=== PATIENT | male | born 1965 | race Caucasian/White ===

== ENCOUNTER 2017-07-31 17:11 | Emergency (ER) | payer OTHER ==
[2017-07-31 17:35] VITALS: BP 139/71
[2017-07-31] MEDS ORDERED: Take Home: Clindamycin HCl 150 MG Cap, 6 Cap Pack PO ONE (18:23)
--- NOTE | 2017-07-31 18:37 | EDM.PDOC ---
ED HPI GENERAL MEDICAL PROBLEM - General Chief Complaint: Genitourinary Problem Stated Complaint: Scotum pain Time Seen by Provider: 07/31/17 17:58 Source of Information: Reports: Patient History Limitations: Reports: No Limitations - History of Present Illness INITIAL COMMENTS - FREE TEXT/NARRATIVE: Patient reports abscess of scrotum that started on Tuesday. He has a history of this in the past. 2 years ago he states he needed surgery to I and D the abscess which required a lengthy time to heal. He denies fever, chills, nausea or vomiting. Recent left knee replacement. He has no other complaints today. Onset: Gradual Onset Date: 07/29/17 Duration: Getting Worse, Intermittent Scrotum Pain Score (Numeric/FACES): 10 - Related Data Allergies Allergy/AdvReac Type Severity Reaction Status Date / Time No Known Allergies Allergy Verified 07/31/17 17:37 Home Meds: Home Meds Allopurinol [Zyloprim] 300 mg PO DAILY 05/07/13 [History] Ezetimibe [Zetia] 10 mg PO DAILY 05/07/13 [History] Gemfibrozil [Lopid] 600 mg PO BIDAC 05/07/13 [History] Indomethacin 50 mg PO BID 05/07/13 [History] Insulin Glarg,Human.Rec.Analog [Lantus] 40 units SQ BEDTIME 05/07/13 [History] Metoprolol Succinate 50 mg PO BID 05/07/13 [History] [place]-3 Fatty Acids/Fish Oil [Fish Oil 1,000 mg Softgel] 1,200 mg PO DAILY 05/07 [History] atorvaSTATin Calcium [Atorvastatin Calcium] 80 mg PO DAILY 05/07/13 [History] Omeprazole [Prilosec] 20 mg PO DAILY 03/05/14 [History] metFORMIN HCl [Metformin HCl] 500 mg PO BID 03/05/14 [History] Insulin Regular, Human [NovoLIN R] 10 unit SQ TID 06/14/14 [History] Aspirin/Calcium Carbonate/Mag [Aspirin Buffered] 325 mg PO BID 07/31/17 [History ] Past Medical History Cardiovascular History: Reports: High Cholesterol, Hypertension, CT Respiratory History: Reports: COPD Musculoskeletal History: Reports: Gout, RA Endocrine/Metabolic History: Reports: Diabetes, Type II - Past Surgical History HEENT Surgical History: Reports: Adenoidectomy, Cataract Surgery, Tonsillectomy Cardiovascular Surgical History: Reports: Coronary Artery Bypass GI Surgical History: Reports: Other (See Below) Musculoskeletal Surgical History: Reports: Arthroscopic Knee Dermatological Surgical History: Reports: Other (See Below) Social & Family History - Tobacco Use Smoking Status *Q: Current Every Day Smoker Years of Tobacco use: 30 Packs/Tins Daily: 1 - Alcohol Use Days Per Week of Alcohol Use: 0 - Recreational Drug Use Recreational Drug Use: No ED ROS GENERAL - Review of Systems Review Of Systems: See Below Constitutional: Reports: No Symptoms HEENT: Reports: No Symptoms Respiratory: Reports: No Symptoms Cardiovascular: Reports: No Symptoms Endocrine: Reports: No Symptoms GI/Abdominal: Reports: No Symptoms : Reports: No Symptoms Musculoskeletal: Reports: No Symptoms Skin: Reports: Wound (abscess to yury rectal area) Neurological: Reports: No Symptoms Psychiatric: Reports: No Symptoms ED EXAM, SKIN/RASH Exam: See Below Exam Limited By: No Limitations General Appearance: Alert, WD/WN, Mild Distress Neck: Normal Inspection Respiratory/Chest: No Respiratory Distress, Lungs Clear, Normal Breath Sounds, No Accessory Muscle Use, Chest Non-Tender Cardiovascular: Normal Peripheral Pulses, Regular Rate, Rhythm, No Edema, No Gallop, No JVD, No Murmur, No Rub GI/Abdominal: Normal Bowel Sounds, Soft, Non-Tender, No Organomegaly, No Distention, No Abnormal Bruit, No Mass (Male) Exam: Scrotal Swelling Rectal (Males) Exam: Perirectal Abscess Back Exam: Normal Inspection, Full Range of Motion, NT Extremities: Normal Inspection, Normal Range of Motion, Non-Tender, No Pedal Edema, Normal Capillary Refill Neurological: Alert, Oriented, CN II-XII Intact, Normal Cognition, Normal Gait, Normal Reflexes, No Motor/Sensory Deficits Psychiatric: Normal Affect, Normal Mood ED SKIN PROCEDURES - I&D Site: perirectal abscess Skin Prep: Chlorhexidine (Hibiciens) Local Anesthesia: Lidocaine: 1% Plain Local Anesthetic Volume: 3cc Area Incised With: 11 Blade Drainage: Bloody, Small Amount Probed to Break Up Loculations: Yes Packed With: None Sterile Dressinx4(s), None (dressing was applied) Complications: No Course - Vital Signs Last Recorded V/S: Last Vital Signs Temp 36.1 C 07/31/17 17:29 Pulse 94 07/31/17 17:29 Resp 16 07/31/17 17:29 BP 139/71 07/31/17 17:29 Pulse Ox 94 L 07/31/17 17:29 - Orders/Labs/Meds Orders: Active Orders 24 hr Category Date Time Status CULTURE WOUND + SMEAR [RM] Stat Lab 07/31/17 18:19 Results Meds: Medications Discontinued Medications Generic Name Dose Route Start Last Admin Trade Name Dianne PRN Reason Stop Dose Admin Clindamycin HCl 1 packet 07/31/17 18:23 07/31/17 18:54 Take Home: Clindamycin Hcl 150 Mg, 6 Cap Pack PO 07/31/17 18:24 1 packet ONETIME ONE Administration Lidocaine HCl Confirm 07/31/17 18:13 07/31/17 18:15 Xylocaine-Mpf 1% Administered 07/31/17 18:14 2 ml Dose Administration 5 ml .ROUTE .STK-MED ONE Lidocaine HCl 5 ml 07/31/17 19:16 07/31/17 21:00 Xylocaine-Mpf 1% INJECT 07/31/17 19:17 Not Given ONETIME ONE - Re-Assessments/Exams Free Text/Narrative Re-Assessment/Exam: 07/31/17 22:18 Abscess drained, dressed with gauze bandaging. Patient encouraged to seek appointment with his primary doctor. Prescribed clindamycin due to interactions with metformin of both bactrim and keflex Departure - Departure Time of Disposition: 18:38 Disposition: Home, Self-Care 01 Condition: Good Clinical Impression: Pyogenic skin abscess due to bacteria - Discharge Information Instructions: Skin Abscess, [id number], Clindamycin capsules Referrals: Anita Escobar DO [Primary Care Provider] - Forms: ED Department Discharge Additional Instructions: You can use a warm bath to try to draw out the infection. You will have to keep your knee out of the water. Wash with soap and water and apply dressing until drainage stops. I recommend you follow up with your primary as well in the next few days to make sure the abscess is improving. I did give you clindamycin 450 mg 4 times daily for 7 days Please take all your antibiotics until the are finished unless you develop a rash, have a hard time breathing, or you have other allergic reactions. Stay well hydrated. Call the emergency room if you have any questions or concerns - Problem List & Annotations (1) Skin abscess SNOMED Code(s): 86076286 Code(s): L02.91 - CUTANEOUS ABSCESS, UNSPECIFIED Status: Acute Priority: Medium Current Visit: Yes Qualifiers: Site of cutaneous abscess: buttock Qualified Code(s): L02.31 - Cutaneous abscess of buttock - Problem List Review Problem List Initiated/Reviewed/Updated: Yes - My Orders Last 24 Hours: My Active Orders 07/31/17 18:19 CULTURE WOUND + SMEAR [RM] Stat - Assessment/Plan Last 24 Hours: My Active Orders 07/31/17 18:19 CULTURE WOUND + SMEAR [RM] Stat Assessment:: skin abscess of right buttock, perirectal area Plan: You can use a warm bath to try to draw out the infection. You will have to keep your knee out of the water. Wash with soap and water and apply dressing until drainage stops. I recommend you follow up with your primary as well in the next few days to make sure the abscess is improving. I did give you clindamycin 450 mg 4 times daily for 7 days Please take all your antibiotics until the are finished unless you develop a rash, have a hard time breathing, or you have other allergic reactions. Stay well hydrated. Call the emergency room if you have any questions or concerns
--- NOTE | 2017-08-02 15:45 | PCM.SN ---
- Free Text/Narrative Note: Culture positive for Coag neg staph-susceptibility unknown at this time. Pt. is currently on clindamycin which has empiric activity against some species of coag neg staph. will await final susceptibility.
== END 2017-07-31 18:58 | disposition home or self-care (01) ==
LOC: VM.ED 17:11
DX: K61.1 Rectal abscess (principal); B96.89 Other specified bacterial agents as the cause of diseases classified elsewhere; F17.210 Nicotine dependence, cigarettes, uncomplicated; E11.9 Type 2 diabetes mellitus without complications; I10 Essential (primary) hypertension; E78.00 Pure hypercholesterolemia, unspecified; I25.2 Old myocardial infarction; Z79.4 Long term (current) use of insulin; Z79.899 Other long term (current) drug therapy
CPT/HCPCS: 46040; 87070; 87205; 99284; A9270

== ENCOUNTER 2017-08-11 11:23 | Inpatient (IN) | payer OTHER ==
[2017-08-11] MEDS ORDERED: Docusate Sodium 100 MG Cap PO PRN (13:39)
[2017-08-11] MEDS ORDERED: Magnesium Hydroxide 400 MG/5 ML Susp 30 ML Cup PO PRN (13:39)
[2017-08-11] MEDS ORDERED: Polyethylene Glycol 3350 Powder 17 GM Packet PO PRN (13:39)
[2017-08-11] MEDS ORDERED: Acetaminophen 325 MG Tab PO PRN (13:39)
--- NOTE | 2017-08-11 14:52 | PCM.HP ---
H&P History of Present Illness - General Date of Service: 08/11/17 Admit Problem/Dx: Admission Diagnosis/Problem Admission Diagnosis/Problem Wound, Buttocks/Scrotum Perianal Abscess Soft Tissue Infection Deconditioning Weakness s/p Left TKA Source of Information: Patient, Family, Old Records, RN History Limitations: Reports: No Limitations - History of Present Illness Initial Comments - Free Text/Narative: NOTE: This patient was seen and examined by me as an [facility] provider 52-year-old male patient is admitted to the swing bed unit at [facility] for ongoing wound cares, status post I&D, deconditioning, and weakness. The patient underwent a left TKA on July 19, [address] Irwin at [facility]. The patient had an uneventful surgery and progressed well with therapies and was therefore discharged on July 21, 2017. The patient presented to [facility] emergency room on July 31, 2017 complaining of swelling and pain around the left yury-area. The patient was diagnosed with a boil and it was lanced and the patient was placed on by mouth antibiotics. Throughout the rest of that day and the next day the patient's symptoms began to worsen. The patient was seen in clinic on July 31, [address] Anita Escobar who referred this patient to Dr. Cornell Wells. The patient underwent an abscess I & D on August 01, 2017. The patient stayed in the hospital until today when he was transferred to the swing bed unit at [facility]. The patient's procedure was fairly uneventful. The patient was given IV antibiotics and had daily dressing changes. The patient has become somewhat deconditioned and feels weak since he has not had much physical therapy since his knee arthroplasty. The patient is unable to change the dressings himself given the location, therefore he needs long term to assist with dressing changes. The patient also needs to be started with physical therapy for his weakness and deconditioning status post left TKA. The patient offers no specific complaints today. The patient states that he continues to have considerable pain around the operative sit The patient does not have any complaints of the left knee. The patient denies any chest pain or shortness of breath. The patient denies any abdominal pain. No fevers or chills. The patient denies any focal neurological deficits. Symptom Onset Date: 07/31/17 - Related Data Allergies/Adverse Reactions: Allergies Allergy/AdvReac Type Severity Reaction Status Date / Time No Known Allergies Allergy Verified 07/31/17 17:37 Home Medications: Home Meds Allopurinol [Zyloprim] 300 mg PO DAILY 05/07/13 [History] Gemfibrozil [Lopid] 600 mg PO BIDAC 05/07/13 [History] Metoprolol Succinate 37 mg PO BID 05/07/13 [History] [place]-3 Fatty Acids/Fish Oil [Fish Oil 1,000 mg Softgel] 1,000 mg PO DAILY 05/07 [History] atorvaSTATin Calcium [Atorvastatin Calcium] 80 mg PO DAILY 05/07/13 [History] Omeprazole [Prilosec] 20 mg PO DAILY 03/05/14 [History] metFORMIN HCl [Metformin HCl] 500 mg PO BIDAC 03/05/14 [History] Aspirin/Calcium Carbonate/Mag [Aspirin Buffered] 325 mg PO BID 07/31/17 [History ] FLUoxetine HCl [Prozac] 40 mg PO DAILY 07/31/17 [History] Gabapentin [Neurontin] 600 mg PO DAILY 07/31/17 [History] Insulin Glargine,Hum.Rec.Anlog [Basaglar Kwikpen U-100] 40 units SQ BEDTIME [History] Insulin Lispro [Humalog Kwikpen] 15 unit SQ TIDAC 07/31/17 [History] LORazepam [Ativan] 1 mg PO BEDTIME 07/31/17 [History] Multivitamin [Men's Multi-Vitamin] 2 tab PO BID 07/31/17 [History] Nortriptyline 50 mg PO DAILY 07/31/17 [History] oxyCODONE 1 - 2 tab PO Q6H PRN 07/31/17 [History] Gabapentin [Neurontin] 300 mg PO BEDTIME 08/11/17 [History] Past Medical History Cardiovascular History: Reports: CAD, High Cholesterol, Hypertension, [place], Stents Other Cardiovascular History: A.flutter, angina Respiratory History: Reports: COPD, Sleep Apnea Musculoskeletal History: Reports: Gout, RA Endocrine/Metabolic History: Reports: Diabetes, Type II - Past Surgical History HEENT Surgical History: Reports: Adenoidectomy, Cataract Surgery, Tonsillectomy Cardiovascular Surgical History: Reports: Cardiac Ablation, Coronary Artery Bypass Respiratory Surgical History: Reports: None GI Surgical History: Reports: Other (See Below) Other GI Surgeries/Procedures: umbilical hernia Musculoskeletal Surgical History: Reports: Arthroscopic Knee, Knee Replacement Dermatological Surgical History: Reports: Other (See Below) Social & Family History - Family History Family Medical History: Noncontributory - Tobacco Use Smoking Status *Q: Former Smoker Years of Tobacco use: 30 Packs/Tins Daily: 1 Used Tobacco, but Quit: Yes Month/Year Tobacco Last Used: 07/2017 Second Hand Smoke Exposure: No - Caffeine Use Caffeine Use: Reports: Coffee, Soda - Alcohol Use Days Per Week of Alcohol Use: 0 - Recreational Drug Use Recreational Drug Use: No H&P Review of Systems - Review of Systems: Review Of Systems: See Below General: Reports: Weakness, Other (feels generally deconditioned). Denies: Fever, Chills, Decreased Appetite Pulmonary: Denies: Shortness of Breath, Cough Cardiovascular: Denies: Chest Pain, Palpitations Gastrointestinal: Denies: Abdominal Pain, Nausea, Vomiting Musculoskeletal: Reports: Joint Pain (left knee, very mild) Skin: Reports: Wound (perianal abscess) Neurological: Reports: Weakness. Denies: Dizziness, Headache Exam - Exam Exam: See Below - Vital Signs Vital Signs: Last Vital Signs Temp 36.3 C 08/11/17 13:27 Pulse 65 08/11/17 13:27 Resp 20 08/11/17 13:27 BP 120/61 08/11/17 13:27 Pulse Ox 97 08/11/17 13:27 Weight: 99.45 kg - Exam Quality Assessment: DVT Prophylaxis, Skin Breakdown General: Alert, Oriented, Cooperative Lungs: Clear to Auscultation, Normal Respiratory Effort Cardiovascular: Regular Rate, Regular Rhythm, Normal S1, Normal S2 GI/Abdominal Exam: Normal Bowel Sounds, Soft, Non-Tender Rectal (Males) Exam: Perirectal Abscess Extremities: Normal Inspection Peripheral Pulses: 2+: Radial (L), Radial (R) Skin: Warm, Dry, Incision (Perianal; dressings intact, scant yellow drainage; unable to measure given wound orientation; no evidence of obvious infection) Neuro Extensive - Mental Status: Alert, Oriented x3 *Q Meaningful Use (ADM) - VTE *Q VTE Criteria *Q: Patient is not at risk for fall - Problem List (1) Perirectal abscess SNOMED Code(s): 01104323 ICD Code: K61.1 - RECTAL ABSCESS Status: Acute Priority: Medium Current Visit: Yes Onset Date: ~07/31/17 (2) Soft tissue infection SNOMED Code(s): 29514229 ICD Code: L08.9 - LOCAL INFECTION OF THE SKIN AND SUBCUTANEOUS TISSUE, UNSP Status: Acute Priority: Medium Current Visit: Yes Onset Date: ~07/31/17 (3) Open wound SNOMED Code(s): 764735951 ICD Code: T14.8XXA - OTHER INJURY OF UNSPECIFIED BODY REGION, INITIAL ENCOUNTER Status: Acute Priority: Medium Current Visit: Yes Onset Date: ~08/01/17 (4) Physical deconditioning SNOMED Code(s): 18615552471754 ICD Code: R53.81 - OTHER MALAISE Status: Acute Priority: Medium Current Visit: Yes (5) Weakness SNOMED Code(s): 80194902 ICD Code: R53.1 - WEAKNESS Status: Acute Priority: Medium Current Visit : Yes (6) Diabetes SNOMED Code(s): 54905468 ICD Code: E11.9 - TYPE 2 DIABETES MELLITUS WITHOUT COMPLICATIONS Status: Chronic Current Visit: No Qualifiers: Diabetes mellitus type: type 2 Diabetes mellitus senior living insulin use: without local intermodal truck driver use Diabetes mellitus complication status: without complication Qualified Code(s): E11.9 - Type 2 diabetes mellitus without complications (7) NSTEMI (non-ST elevated myocardial infarction) SNOMED Code(s): 419660730 ICD Code: I21.4 - NON-ST ELEVATION (NSTEMI) MYOCARDIAL INFARCTION Status: Chronic Current Visit: No (8) Essential hypertension SNOMED Code(s): 34733427 ICD Code: I10 - ESSENTIAL (PRIMARY) HYPERTENSION Status: Chronic Current Visit: No (9) Mixed hyperlipidemia SNOMED Code(s): 567941061 ICD Code: E78.2 - MIXED HYPERLIPIDEMIA Status: Chronic Priority: Medium Current Visit: No (10) Depression SNOMED Code(s): 69391167 ICD Code: F32.9 - MAJOR DEPRESSIVE DISORDER, SINGLE EPISODE, UNSPECIFIED Status: Acute Current Visit: Yes Qualifiers: Depression Type: major depressive disorder Major depression recurrence: recurrent Active/Remission status: currently active Major depression episode severity: mild Qualified Code(s): F33.0 - Major depressive disorder, recurrent, mild Problem List Initiated/Reviewed/Updated: Yes Orders Last 24hrs: Active Orders 24 hr Category Date Time Status Patient Status [ADT] Routine ADT 08/11/17 13:39 Active Accu Check [Blood Glucose Check, Bedside] [RC] 07,11,17 Care 08/11/17 13:43 Active ,20 Ambulate [RC] 08,20 Care 08/11/17 13:39 Active Height and Weight [RC] .PRN Care 08/11/17 13:40 Active Intake and Output [RC] 06,18 Care 08/11/17 13:40 Active Oxygen Therapy [RC] PRN Care 08/11/17 13:39 Active Vital Signs [RC] ,18 Care 08/11/17 13:39 Active Consult to Case Management [CONS] Routine Cons 08/11/17 13:39 Active OT Evaluation and Treatment [CONS] Routine Cons 08/11/17 13:39 Active PT Evaluation and Treatment [CONS] Routine Cons 08/11/17 13:39 Active [place] [employer] Diet [DIET] Diet 08/11/17 Breakfast Active Acetaminophen [Tylenol] Med 08/11/17 13:39 Active 650 mg PO Q4H PRN Allopurinol [Zyloprim] Med 08/12/17 08:00 Active 300 mg PO DAILY Aspirin/Calcium Carbonate/Mag [Aspirin Buffered] Med 08/11/17 20:00 Pending 325 mg PO BID Docusate Sodium [Colace] Med 08/11/17 13:39 Active 100 mg PO BID PRN FLUoxetine [PROzac] Med 08/12/17 08:00 Active 40 mg PO DAILY Fish Oil/[place]-3 Fatty Acids [Fish Oil] Med 08/12/17 08:00 Active 1 gm PO DAILY Gabapentin [Neurontin] Med 08/11/17 20:00 Active 300 mg PO BEDTIME Gabapentin [Neurontin] Med 08/12/17 08:00 Active 600 mg PO DAILY Gemfibrozil [Lopid] Med 08/11/17 17:00 Active 600 mg PO BIDAC Insulin Aspart [NovoLOG] Med 08/11/17 17:00 Active 15 unit SUBCUT TIDAC Insulin Detemir [Levemir] Med 08/11/17 20:00 Active 20 unit SUBCUT BID LORazepam [Ativan] Med 08/11/17 20:00 Active 1 mg PO BEDTIME Magnesium Hydroxide [Milk of Magnesia] Med 08/11/17 13:39 Active 30 ml PO Q12H PRN Metoprolol Succinate [Toprol XL] Med 08/11/17 20:00 Pending 37 mg PO BID Multivitamins w-Iron/Ca/FA/Min [Thera M Plus] Med 08/12/17 08:00 Active 1 tab PO DAILY Nortriptyline Med 08/11/17 20:00 Active 50 mg PO BEDTIME Omeprazole Med 08/12/17 07:00 Active 20 mg PO ACBRK Polyethylene Glycol 3350 [MiraLAX] Med 08/11/17 13:39 Active 17 gm PO DAILY PRN atorvaSTATin [Lipitor] Med 08/11/17 20:00 Active 80 mg PO BEDTIME metFORMIN [Glucophage] Med 08/11/17 18:00 Active 500 mg PO BIDMEALS oxyCODONE Med 08/11/17 13:17 Active 5 mg PO Q6H PRN Antiembolic Hose [OM.PC] Routine Oth 08/11/17 13:39 Ordered Patient May [OM.PC] Click To Edit Oth 08/11/17 13:39 Ordered Resuscitation Status Routine Resus Stat 08/11/17 13:39 Ordered Medication Orders Acetaminophen (Tylenol) 650 mg PO Q4H PRN PRN Reason: Pain (Mild 1-3)/fever Allopurinol (Zyloprim) 300 mg PO DAILY [facility] Atorvastatin Calcium (Lipitor) 80 mg PO BEDTIME BLAS Docusate Sodium (Colace) 100 mg PO BID PRN PRN Reason: Constipation Fish Oil (Fish Oil) 1 gm PO DAILY [facility] Fluoxetine HCl (Prozac) 40 mg PO DAILY [facility] Gabapentin (Neurontin) 300 mg PO BEDTIME [facility]AS Gabapentin (Neurontin) 600 mg PO DAILY [facility] Gemfibrozil (Lopid) 600 mg PO BIDAC [facility] Insulin Aspart (Novolog) 15 unit SUBCUT TIDAC BLAS Insulin Detemir (Levemir) 20 unit SUBCUT BID [facility] Lorazepam (Ativan) 1 mg PO BEDTIME [facility] Magnesium Hydroxide (Milk Of Magnesia) 30 ml PO Q12H PRN PRN Reason: Constipation Metformin HCl (Glucophage) 500 mg PO BIDMEALS [facility] Metoprolol Succinate (Toprol Xl) 37 mg PO BID [facility] Multivitamins/Minerals (Thera M Plus) 1 tab PO DAILY [facility] Non-Formulary Medication (Aspirin/Calcium Carbonate/Mag [Aspirin Buffered]) 325 mg PO BID [facility]AS Nortriptyline HCl (Nortriptyline) 50 mg PO BEDTIME [facility] Omeprazole (Omeprazole) 20 mg PO ACBRK [facility] Oxycodone HCl (Oxycodone) 5 mg PO Q6H PRN PRN Reason: Pain (severe 7-10) Polyethylene Glycol (Miralax) 17 gm PO DAILY PRN PRN Reason: Constipation Assessment/Plan Comment:: 52-year-old male patient with a past medical history of diabetes, non-STEMI, hypertension, mixed hyperlipidemia, and depression is admitted to the swing bed unit at [facility] for a diagnosis of perianal abscess, soft tissue infection, deconditioning, and weakness. The patient was discharged on by mouth Bactrim DS and we will continue this for the full course. We will do close monitoring of the patient's soft tissue infection with each dressing change. The patient will have the dressing changed twice a day and as needed. The dressing change will be wet to dry. The patient does have an appointment August 17, 2017 at the wound clinic in [place]. We will monitor the patient's blood sugars closely 4 times a day given current infection status. We will continue the patient on his current home medications without any changes. We will continue the patient on aspirin 325 mg twice daily for anticoagulation. The patient will continue this 5 weeks postop. We will have physical and occupational therapy see this patient while he is on swing bed due to the fact the patient is behind on his therapy schedule. The patient will be admitted to swing bed until the patient or his is able to care for the open wound at home. The patient may need home healthcare services if they're unable to. We will see what the wound clinic asked to see at his next appointment and make the discharge physician at that time. We will also see how the patient progresses with physical and occupational therapy. The patient is a full code. The patient does wish to be transferred to a higher level of care should the need arise. NOTE: This patient was seen and examined by me as an [facility] provider
[2017-08-11] MEDS: Gemfibrozil 600 MG Tab PO SCH (17:12)
[2017-08-11] MEDS: Insulin Aspart 100 Units/ML 3 ML Pen SUBCUT SCH (17:12)
[2017-08-11] MEDS: metFORMIN 500 MG Tab PO SCH (17:12)
[2017-08-11] MEDS ORDERED: Insulin Detemir 100 Units/ML 3 ML Pen SUBCUT SCH (20:00)
[2017-08-11] MEDS ORDERED: atorvaSTATin 40 MG Tab PO SCH (20:00)
[2017-08-11] MEDS ORDERED: Metoprolol Succinate 25 MG Tab.ER PO SCH (20:00)
[2017-08-11] MEDS: Nortriptyline 25 MG Cap PO SCH (20:36)
[2017-08-11] MEDS: LORazepam 1 MG Tab PO SCH (20:37)
[2017-08-11] MEDS: Sulfamethoxazole/Trimethoprim 800-160 MG Tab PO SCH (20:39)
[2017-08-11] MEDS: Aspirin 325 MG Tab.EC PO SCH (20:44)
[2017-08-11] MEDS: Gabapentin 300 MG Cap PO SCH (20:45)
[2017-08-11] MEDS: Metoprolol Tartrate 25 MG Tab PO SCH (20:48)
[2017-08-11] MEDS: oxyCODONE 5 MG Tab PO PRN (21:12)
[2017-08-12] MEDS: Insulin Aspart 100 Units/ML 3 ML Pen SUBCUT SCH ×3 (06:46→17:49)
[2017-08-12] MEDS: Gemfibrozil 600 MG Tab PO SCH ×2 (06:48→17:16)
[2017-08-12] MEDS ORDERED: Omeprazole 20 MG Cap.CR PO SCH (07:00)
[2017-08-12] MEDS: Metoprolol Tartrate 25 MG Tab PO SCH ×2 (08:23→21:17)
[2017-08-12] MEDS: Gabapentin 300 MG Cap PO SCH ×2 (08:23→21:15)
[2017-08-12] MEDS: Aspirin 325 MG Tab.EC PO SCH ×2 (08:23→21:16)
[2017-08-12] MEDS: Sulfamethoxazole/Trimethoprim 800-160 MG Tab PO SCH ×2 (08:23→21:15)
[2017-08-12] MEDS: metFORMIN 500 MG Tab PO SCH ×2 (08:24→17:16)
[2017-08-12] MEDS: Multivitamins with Iron/Calcium/Folic Acid/Minerals Tab PO SCH (08:24)
[2017-08-12] MEDS: Allopurinol 300 MG Tab PO SCH (08:24)
[2017-08-12] MEDS: FLUoxetine 20 MG Cap PO SCH (08:24)
[2017-08-12] MEDS: Fish Oil/Omega-3 Fatty Acids 1 Gm Cap PO SCH (08:24)
[2017-08-12] MEDS: Insulin Detemir 100 Units/ML 3 ML Pen SUBCUT SCH ×2 (08:30→21:20)
[2017-08-12] MEDS: Nortriptyline 25 MG Cap PO SCH (21:14)
[2017-08-12] MEDS: LORazepam 1 MG Tab PO SCH (21:16)
[2017-08-12] MEDS: atorvaSTATin 40 MG Tab PO SCH (21:16)
[2017-08-12] MEDS: oxyCODONE 5 MG Tab PO PRN (21:19)
[2017-08-13] MEDS: Gemfibrozil 600 MG Tab PO SCH ×2 (06:48→17:27)
[2017-08-13] MEDS: Omeprazole 20 MG Cap.CR PO SCH (06:48)
[2017-08-13] MEDS: Gabapentin 300 MG Cap PO SCH ×2 (07:42→20:34)
[2017-08-13] MEDS: Allopurinol 300 MG Tab PO SCH (07:43)
[2017-08-13] MEDS: Aspirin 325 MG Tab.EC PO SCH ×2 (07:43→20:41)
[2017-08-13] MEDS: Metoprolol Tartrate 25 MG Tab PO SCH ×2 (07:43→20:32)
[2017-08-13] MEDS: FLUoxetine 20 MG Cap PO SCH (07:43)
[2017-08-13] MEDS: Multivitamins with Iron/Calcium/Folic Acid/Minerals Tab PO SCH (07:43)
[2017-08-13] MEDS: Insulin Aspart 100 Units/ML 3 ML Pen SUBCUT SCH ×3 (07:43→17:27)
[2017-08-13] MEDS: metFORMIN 500 MG Tab PO SCH ×2 (07:43→17:27)
[2017-08-13] MEDS: Sulfamethoxazole/Trimethoprim 800-160 MG Tab PO SCH ×2 (07:43→20:34)
[2017-08-13] MEDS: Fish Oil/Omega-3 Fatty Acids 1 Gm Cap PO SCH (07:43)
[2017-08-13] MEDS: Insulin Detemir 100 Units/ML 3 ML Pen SUBCUT SCH ×2 (07:44→20:47)
[2017-08-13] MEDS: Nortriptyline 25 MG Cap PO SCH (20:34)
[2017-08-13] MEDS: atorvaSTATin 40 MG Tab PO SCH (20:34)
[2017-08-13] MEDS: LORazepam 1 MG Tab PO SCH (20:37)
[2017-08-14] MEDS: Omeprazole 20 MG Cap.CR PO SCH (06:06)
[2017-08-14] MEDS: Gemfibrozil 600 MG Tab PO SCH ×2 (06:07→17:31)
[2017-08-14] MEDS: Gabapentin 300 MG Cap PO SCH ×2 (07:52→20:44)
[2017-08-14] MEDS: Fish Oil/Omega-3 Fatty Acids 1 Gm Cap PO SCH (07:52)
[2017-08-14] MEDS: Allopurinol 300 MG Tab PO SCH (07:52)
[2017-08-14] MEDS: metFORMIN 500 MG Tab PO SCH ×2 (07:52→17:31)
[2017-08-14] MEDS: Aspirin 325 MG Tab.EC PO SCH ×2 (07:52→20:45)
[2017-08-14] MEDS: Sulfamethoxazole/Trimethoprim 800-160 MG Tab PO SCH ×2 (07:52→20:44)
[2017-08-14] MEDS: FLUoxetine 20 MG Cap PO SCH (07:53)
[2017-08-14] MEDS: Multivitamins with Iron/Calcium/Folic Acid/Minerals Tab PO SCH (07:53)
[2017-08-14] MEDS: Metoprolol Tartrate 25 MG Tab PO SCH ×2 (07:53→20:41)
[2017-08-14] MEDS: Insulin Aspart 100 Units/ML 3 ML Pen SUBCUT SCH ×3 (07:54→17:31)
[2017-08-14] MEDS: Insulin Detemir 100 Units/ML 3 ML Pen SUBCUT SCH ×2 (07:54→20:43)
[2017-08-14] MEDS: atorvaSTATin 40 MG Tab PO SCH (20:44)
[2017-08-14] MEDS: Nortriptyline 25 MG Cap PO SCH (20:44)
[2017-08-14] MEDS: LORazepam 1 MG Tab PO SCH (20:45)
[2017-08-15] MEDS: Omeprazole 20 MG Cap.CR PO SCH (06:31)
[2017-08-15] MEDS: Gemfibrozil 600 MG Tab PO SCH ×2 (06:31→17:19)
[2017-08-15] MEDS: FLUoxetine 20 MG Cap PO SCH (08:52)
[2017-08-15] MEDS: Allopurinol 300 MG Tab PO SCH (08:52)
[2017-08-15] MEDS: Metoprolol Tartrate 25 MG Tab PO SCH ×2 (08:52→21:07)
[2017-08-15] MEDS: Sulfamethoxazole/Trimethoprim 800-160 MG Tab PO SCH ×2 (08:52→21:06)
[2017-08-15] MEDS: Fish Oil/Omega-3 Fatty Acids 1 Gm Cap PO SCH (08:52)
[2017-08-15] MEDS: Multivitamins with Iron/Calcium/Folic Acid/Minerals Tab PO SCH (08:52)
[2017-08-15] MEDS: metFORMIN 500 MG Tab PO SCH ×2 (08:52→17:19)
[2017-08-15] MEDS: Gabapentin 300 MG Cap PO SCH ×2 (08:52→21:05)
[2017-08-15] MEDS: Aspirin 325 MG Tab.EC PO SCH ×2 (08:52→21:06)
[2017-08-15] MEDS: Insulin Detemir 100 Units/ML 3 ML Pen SUBCUT SCH ×2 (08:53→21:11)
[2017-08-15] MEDS: Insulin Aspart 100 Units/ML 3 ML Pen SUBCUT SCH ×3 (08:54→17:20)
[2017-08-15] MEDS: LORazepam 1 MG Tab PO SCH (21:05)
[2017-08-15] MEDS: atorvaSTATin 40 MG Tab PO SCH (21:05)
[2017-08-15] MEDS: Nortriptyline 25 MG Cap PO SCH (21:06)
[2017-08-15] MEDS: oxyCODONE 5 MG Tab PO PRN (21:07)
[2017-08-16] MEDS: Omeprazole 20 MG Cap.CR PO SCH (06:28)
[2017-08-16] MEDS: Gemfibrozil 600 MG Tab PO SCH ×2 (06:28→17:39)
[2017-08-16] MEDS: FLUoxetine 20 MG Cap PO SCH (07:46)
[2017-08-16] MEDS: Aspirin 325 MG Tab.EC PO SCH ×2 (07:46→20:06)
[2017-08-16] MEDS: Fish Oil/Omega-3 Fatty Acids 1 Gm Cap PO SCH (07:46)
[2017-08-16] MEDS: metFORMIN 500 MG Tab PO SCH ×2 (07:46→17:40)
[2017-08-16] MEDS: Multivitamins with Iron/Calcium/Folic Acid/Minerals Tab PO SCH (07:46)
[2017-08-16] MEDS: Allopurinol 300 MG Tab PO SCH (07:46)
[2017-08-16] MEDS: Gabapentin 300 MG Cap PO SCH ×2 (07:46→20:06)
[2017-08-16] MEDS: Metoprolol Tartrate 25 MG Tab PO SCH ×2 (07:47→20:05)
[2017-08-16] MEDS: Sulfamethoxazole/Trimethoprim 800-160 MG Tab PO SCH ×2 (07:47→20:08)
[2017-08-16] MEDS: Insulin Detemir 100 Units/ML 3 ML Pen SUBCUT SCH ×2 (07:49→20:09)
[2017-08-16] MEDS: Insulin Aspart 100 Units/ML 3 ML Pen SUBCUT SCH ×3 (07:49→17:41)
[2017-08-16] MEDS: oxyCODONE 5 MG Tab PO PRN (17:39)
[2017-08-16] MEDS: atorvaSTATin 40 MG Tab PO SCH (20:06)
[2017-08-16] MEDS: LORazepam 1 MG Tab PO SCH (20:06)
[2017-08-16] MEDS: Nortriptyline 25 MG Cap PO SCH (20:07)
[2017-08-17] MEDS: Gemfibrozil 600 MG Tab PO SCH ×2 (06:19→18:26)
[2017-08-17] MEDS: Omeprazole 20 MG Cap.CR PO SCH (06:19)
[2017-08-17] MEDS: Insulin Detemir 100 Units/ML 3 ML Pen SUBCUT SCH ×2 (08:00→20:15)
[2017-08-17] MEDS: Insulin Aspart 100 Units/ML 3 ML Pen SUBCUT SCH ×3 (08:01→18:33)
[2017-08-17] MEDS: Gabapentin 300 MG Cap PO SCH ×2 (08:02→20:12)
[2017-08-17] MEDS: Metoprolol Tartrate 25 MG Tab PO SCH ×2 (08:02→20:11)
[2017-08-17] MEDS: metFORMIN 500 MG Tab PO SCH ×2 (08:02→18:26)
[2017-08-17] MEDS: Multivitamins with Iron/Calcium/Folic Acid/Minerals Tab PO SCH (08:02)
[2017-08-17] MEDS: Aspirin 325 MG Tab.EC PO SCH ×2 (08:02→20:13)
[2017-08-17] MEDS: Fish Oil/Omega-3 Fatty Acids 1 Gm Cap PO SCH (08:03)
[2017-08-17] MEDS: Allopurinol 300 MG Tab PO SCH (08:03)
[2017-08-17] MEDS: FLUoxetine 20 MG Cap PO SCH (08:03)
[2017-08-17] MEDS: Sulfamethoxazole/Trimethoprim 800-160 MG Tab PO SCH ×2 (08:03→20:13)
[2017-08-17] MEDS ORDERED: Nystatin Crm 30 GM Tube TOP SCH (20:00)
[2017-08-17] MEDS: atorvaSTATin 40 MG Tab PO SCH (20:12)
[2017-08-17] MEDS: Nortriptyline 25 MG Cap PO SCH (20:12)
[2017-08-17] MEDS: LORazepam 1 MG Tab PO SCH (20:13)
[2017-08-17] MEDS: oxyCODONE 5 MG Tab PO PRN (20:14)
[2017-08-17] MEDS: Nystatin Crm 30 GM Tube TOP SCH (20:15)
[2017-08-18] MEDS: Omeprazole 20 MG Cap.CR PO SCH (06:41)
[2017-08-18] MEDS: Gemfibrozil 600 MG Tab PO SCH ×2 (06:42→17:27)
[2017-08-18] MEDS: Allopurinol 300 MG Tab PO SCH (07:48)
[2017-08-18] MEDS: metFORMIN 500 MG Tab PO SCH ×2 (07:48→17:26)
[2017-08-18] MEDS: Gabapentin 300 MG Cap PO SCH ×2 (07:49→21:07)
[2017-08-18] MEDS: Metoprolol Tartrate 25 MG Tab PO SCH ×2 (07:49→21:09)
[2017-08-18] MEDS: Fish Oil/Omega-3 Fatty Acids 1 Gm Cap PO SCH (07:49)
[2017-08-18] MEDS: FLUoxetine 20 MG Cap PO SCH (07:50)
[2017-08-18] MEDS: Multivitamins with Iron/Calcium/Folic Acid/Minerals Tab PO SCH (07:50)
[2017-08-18] MEDS: Sulfamethoxazole/Trimethoprim 800-160 MG Tab PO SCH (07:50)
[2017-08-18] MEDS: Aspirin 325 MG Tab.EC PO SCH ×2 (07:50→21:07)
[2017-08-18] MEDS: Insulin Aspart 100 Units/ML 3 ML Pen SUBCUT SCH ×3 (07:52→17:25)
[2017-08-18] MEDS: Nystatin Crm 30 GM Tube TOP SCH ×2 (07:52→21:15)
[2017-08-18] MEDS: Insulin Detemir 100 Units/ML 3 ML Pen SUBCUT SCH ×2 (07:55→21:18)
[2017-08-18] MEDS: oxyCODONE 5 MG Tab PO PRN (17:26)
[2017-08-18] MEDS: Nortriptyline 25 MG Cap PO SCH (21:06)
[2017-08-18] MEDS: atorvaSTATin 40 MG Tab PO SCH (21:08)
[2017-08-18] MEDS: LORazepam 1 MG Tab PO SCH (21:08)
[2017-08-19] MEDS: Omeprazole 20 MG Cap.CR PO SCH (06:43)
[2017-08-19] MEDS: Gemfibrozil 600 MG Tab PO SCH ×2 (06:43→18:31)
[2017-08-19] MEDS: Gabapentin 300 MG Cap PO SCH ×2 (08:21→20:56)
[2017-08-19] MEDS: FLUoxetine 20 MG Cap PO SCH (08:22)
[2017-08-19] MEDS: Metoprolol Tartrate 25 MG Tab PO SCH ×2 (08:22→20:57)
[2017-08-19] MEDS: Fish Oil/Omega-3 Fatty Acids 1 Gm Cap PO SCH (08:22)
[2017-08-19] MEDS: Multivitamins with Iron/Calcium/Folic Acid/Minerals Tab PO SCH (08:22)
[2017-08-19] MEDS: Aspirin 325 MG Tab.EC PO SCH ×2 (08:22→20:56)
[2017-08-19] MEDS: Allopurinol 300 MG Tab PO SCH (08:22)
[2017-08-19] MEDS: metFORMIN 500 MG Tab PO SCH ×2 (08:22→18:32)
[2017-08-19] MEDS: Nystatin Crm 30 GM Tube TOP SCH ×2 (08:22→20:59)
[2017-08-19] MEDS: Insulin Detemir 100 Units/ML 3 ML Pen SUBCUT SCH ×2 (08:23→20:57)
[2017-08-19] MEDS: Insulin Aspart 100 Units/ML 3 ML Pen SUBCUT SCH ×3 (08:25→18:27)
[2017-08-19] MEDS: atorvaSTATin 40 MG Tab PO SCH (20:55)
[2017-08-19] MEDS: Nortriptyline 25 MG Cap PO SCH (20:55)
[2017-08-19] MEDS: LORazepam 1 MG Tab PO SCH (20:56)
[2017-08-20] MEDS: Gemfibrozil 600 MG Tab PO SCH ×2 (06:28→18:54)
[2017-08-20] MEDS: Omeprazole 20 MG Cap.CR PO SCH (06:29)
[2017-08-20] MEDS: Nystatin Crm 30 GM Tube TOP SCH ×2 (08:08→20:50)
[2017-08-20] MEDS: Multivitamins with Iron/Calcium/Folic Acid/Minerals Tab PO SCH (08:09)
[2017-08-20] MEDS: Aspirin 325 MG Tab.EC PO SCH ×2 (08:09→20:50)
[2017-08-20] MEDS: Gabapentin 300 MG Cap PO SCH ×2 (08:09→20:50)
[2017-08-20] MEDS: Fish Oil/Omega-3 Fatty Acids 1 Gm Cap PO SCH (08:09)
[2017-08-20] MEDS: Allopurinol 300 MG Tab PO SCH (08:09)
[2017-08-20] MEDS: FLUoxetine 20 MG Cap PO SCH (08:09)
[2017-08-20] MEDS: Metoprolol Tartrate 25 MG Tab PO SCH ×2 (08:09→20:50)
[2017-08-20] MEDS: metFORMIN 500 MG Tab PO SCH ×2 (08:09→18:54)
[2017-08-20] MEDS: Insulin Detemir 100 Units/ML 3 ML Pen SUBCUT SCH ×2 (08:10→20:50)
[2017-08-20] MEDS: Insulin Aspart 100 Units/ML 3 ML Pen SUBCUT SCH ×3 (08:10→18:55)
[2017-08-20] MEDS: atorvaSTATin 40 MG Tab PO SCH (20:50)
[2017-08-20] MEDS: LORazepam 1 MG Tab PO SCH (20:50)
[2017-08-20] MEDS: Nortriptyline 25 MG Cap PO SCH (20:50)
[2017-08-21] MEDS: Gemfibrozil 600 MG Tab PO SCH ×2 (06:15→17:55)
[2017-08-21] MEDS: Omeprazole 20 MG Cap.CR PO SCH (06:15)
[2017-08-21] MEDS: Insulin Aspart 100 Units/ML 3 ML Pen SUBCUT SCH ×3 (07:40→17:38)
[2017-08-21] MEDS: Nystatin Crm 30 GM Tube TOP SCH ×3 (07:40→20:36)
[2017-08-21] MEDS: Insulin Detemir 100 Units/ML 3 ML Pen SUBCUT SCH ×2 (07:41→20:38)
[2017-08-21] MEDS: Fish Oil/Omega-3 Fatty Acids 1 Gm Cap PO SCH (07:42)
[2017-08-21] MEDS: FLUoxetine 20 MG Cap PO SCH (07:42)
[2017-08-21] MEDS: Aspirin 325 MG Tab.EC PO SCH ×2 (07:42→20:31)
[2017-08-21] MEDS: Metoprolol Tartrate 25 MG Tab PO SCH ×2 (07:42→20:31)
[2017-08-21] MEDS: metFORMIN 500 MG Tab PO SCH ×2 (07:42→17:55)
[2017-08-21] MEDS: Gabapentin 300 MG Cap PO SCH ×2 (07:42→20:31)
[2017-08-21] MEDS: Allopurinol 300 MG Tab PO SCH (07:42)
[2017-08-21] MEDS: Multivitamins with Iron/Calcium/Folic Acid/Minerals Tab PO SCH (07:42)
[2017-08-21] MEDS: atorvaSTATin 40 MG Tab PO SCH (20:30)
[2017-08-21] MEDS: Nortriptyline 25 MG Cap PO SCH (20:30)
[2017-08-21] MEDS: LORazepam 1 MG Tab PO SCH (20:33)
[2017-08-21] MEDS: oxyCODONE 5 MG Tab PO PRN (20:33)
[2017-08-22] MEDS: Omeprazole 20 MG Cap.CR PO SCH (06:29)
[2017-08-22] MEDS: Gemfibrozil 600 MG Tab PO SCH (06:29)
[2017-08-22] MEDS ORDERED: Albuterol/Ipratropium 3.0-0.5 MG/3 ML Neb Soln ONE (07:59)
[2017-08-22] MEDS: FLUoxetine 20 MG Cap PO SCH (09:30)
[2017-08-22] MEDS: Gabapentin 300 MG Cap PO SCH (09:31)
[2017-08-22] MEDS: metFORMIN 500 MG Tab PO SCH (09:32)
[2017-08-22] MEDS: Allopurinol 300 MG Tab PO SCH (09:33)
[2017-08-22] MEDS: Metoprolol Tartrate 25 MG Tab PO SCH (09:33)
[2017-08-22] MEDS: Aspirin 325 MG Tab.EC PO SCH (09:33)
[2017-08-22] MEDS: Multivitamins with Iron/Calcium/Folic Acid/Minerals Tab PO SCH (09:33)
[2017-08-22] MEDS: Fish Oil/Omega-3 Fatty Acids 1 Gm Cap PO SCH (09:36)
[2017-08-22] MEDS: Insulin Detemir 100 Units/ML 3 ML Pen SUBCUT SCH (09:39)
[2017-08-22] MEDS: Insulin Aspart 100 Units/ML 3 ML Pen SUBCUT SCH ×2 (09:42→12:33)
[2017-08-22] MEDS: Nystatin Crm 30 GM Tube TOP SCH (09:44)
[2017-08-23] MEDS: Gemfibrozil 600 MG Tab PO SCH ×3 (03:49→18:46)
[2017-08-23] MEDS: metFORMIN 500 MG Tab PO SCH ×3 (03:49→18:47)
[2017-08-23] MEDS: Aspirin 325 MG Tab.EC PO SCH ×3 (03:50→20:23)
[2017-08-23] MEDS: LORazepam 1 MG Tab PO SCH ×2 (03:50→20:21)
[2017-08-23] MEDS: Gabapentin 300 MG Cap PO SCH ×3 (03:51→20:23)
[2017-08-23] MEDS: Nortriptyline 25 MG Cap PO SCH ×2 (03:51→20:21)
[2017-08-23] MEDS: atorvaSTATin 40 MG Tab PO SCH ×2 (03:51→20:22)
[2017-08-23] MEDS: Metoprolol Tartrate 25 MG Tab PO SCH ×3 (03:51→20:22)
[2017-08-23] MEDS: Insulin Aspart 100 Units/ML 3 ML Pen SUBCUT SCH ×4 (04:14→18:48)
[2017-08-23] MEDS: Nystatin Crm 30 GM Tube TOP SCH ×3 (04:15→20:23)
[2017-08-23] MEDS: Insulin Detemir 100 Units/ML 3 ML Pen SUBCUT SCH ×3 (04:15→20:25)
[2017-08-23] MEDS: Omeprazole 20 MG Cap.CR PO SCH (06:48)
[2017-08-23] MEDS: Allopurinol 300 MG Tab PO SCH (08:29)
[2017-08-23] MEDS: FLUoxetine 20 MG Cap PO SCH (08:29)
[2017-08-23] MEDS: Fish Oil/Omega-3 Fatty Acids 1 Gm Cap PO SCH (08:30)
[2017-08-23] MEDS: Multivitamins with Iron/Calcium/Folic Acid/Minerals Tab PO SCH (08:30)
[2017-08-23] MEDS: oxyCODONE 5 MG Tab PO PRN (20:31)
[2017-08-24] MEDS: Gemfibrozil 600 MG Tab PO SCH ×2 (06:23→18:59)
[2017-08-24] MEDS: Omeprazole 20 MG Cap.CR PO SCH (06:23)
[2017-08-24] MEDS: Metoprolol Tartrate 25 MG Tab PO SCH ×2 (08:35→19:33)
[2017-08-24] MEDS: FLUoxetine 20 MG Cap PO SCH (08:35)
[2017-08-24] MEDS: Allopurinol 300 MG Tab PO SCH (08:35)
[2017-08-24] MEDS: Multivitamins with Iron/Calcium/Folic Acid/Minerals Tab PO SCH (08:35)
[2017-08-24] MEDS: metFORMIN 500 MG Tab PO SCH ×2 (08:35→18:59)
[2017-08-24] MEDS: Gabapentin 300 MG Cap PO SCH ×2 (08:35→19:32)
[2017-08-24] MEDS: Fish Oil/Omega-3 Fatty Acids 1 Gm Cap PO SCH (08:35)
[2017-08-24] MEDS: Aspirin 325 MG Tab.EC PO SCH ×2 (08:35→19:32)
[2017-08-24] MEDS: Insulin Detemir 100 Units/ML 3 ML Pen SUBCUT SCH ×2 (08:36→19:36)
[2017-08-24] MEDS: Insulin Aspart 100 Units/ML 3 ML Pen SUBCUT SCH ×3 (08:36→18:59)
[2017-08-24] MEDS: Nystatin Crm 30 GM Tube TOP SCH ×2 (08:38→19:33)
[2017-08-24] MEDS: Nortriptyline 25 MG Cap PO SCH (19:32)
[2017-08-24] MEDS: atorvaSTATin 40 MG Tab PO SCH (19:32)
[2017-08-24] MEDS: LORazepam 1 MG Tab PO SCH (19:33)
[2017-08-25] MEDS: Gemfibrozil 600 MG Tab PO SCH ×2 (07:47→19:55)
[2017-08-25] MEDS: Omeprazole 20 MG Cap.CR PO SCH (07:48)
[2017-08-25] MEDS: FLUoxetine 20 MG Cap PO SCH (09:15)
[2017-08-25] MEDS: Metoprolol Tartrate 25 MG Tab PO SCH ×2 (09:16→19:56)
[2017-08-25] MEDS: Gabapentin 300 MG Cap PO SCH ×2 (09:17→19:55)
[2017-08-25] MEDS: Fish Oil/Omega-3 Fatty Acids 1 Gm Cap PO SCH (09:17)
[2017-08-25] MEDS: Allopurinol 300 MG Tab PO SCH (09:18)
[2017-08-25] MEDS: Aspirin 325 MG Tab.EC PO SCH ×2 (09:19→19:55)
[2017-08-25] MEDS: metFORMIN 500 MG Tab PO SCH ×2 (09:19→19:54)
[2017-08-25] MEDS: Multivitamins with Iron/Calcium/Folic Acid/Minerals Tab PO SCH (09:19)
[2017-08-25] MEDS: Insulin Detemir 100 Units/ML 3 ML Pen SUBCUT SCH ×2 (09:20→19:58)
[2017-08-25] MEDS: Nystatin Crm 30 GM Tube TOP SCH ×2 (09:37→19:53)
[2017-08-25] MEDS: Insulin Aspart 100 Units/ML 3 ML Pen SUBCUT SCH ×4 (11:41→19:59)
[2017-08-25] MEDS: Nortriptyline 25 MG Cap PO SCH (19:54)
[2017-08-25] MEDS: atorvaSTATin 40 MG Tab PO SCH (19:55)
[2017-08-25] MEDS: LORazepam 1 MG Tab PO SCH (19:55)
[2017-08-26 06:13] VITALS: BP 131/69
[2017-08-26] MEDS: Omeprazole 20 MG Cap.CR PO SCH (06:25)
[2017-08-26] MEDS: Gemfibrozil 600 MG Tab PO SCH (06:25)
--- NOTE | 2017-08-26 07:38 | PCM.DCSUM1 ---
Discharge Summary - Hospital Course HPI Initial Comments: 52-year-old male patient is admitted to the swing bed unit at [facility] on August 11, 2017 for ongoing wound cares, status post I&D, deconditioning, and weakness. The patient underwent a left TKA on July 19, [address] Irwin at [facility]. The patient had an uneventful surgery and progressed well with therapies and was therefore discharged on July 21, 2017. The patient presented to [facility] emergency room on July 31, 2017 complaining of swelling and pain around the left yury-area. The patient was diagnosed with a boil and it was lanced and the patient was placed on by mouth antibiotics. Throughout the rest of that day and the next day the patient's symptoms began to worsen. The patient was seen in clinic on July 31, [address] Anita Escobar who referred this patient to Dr. Cornell Wells. The patient underwent an abscess I & D on August 01, 2017. The patient stayed in the hospital until today when he was transferred to the swing bed unit at [facility]. The patient's procedure was fairly uneventful. The patient was given IV antibiotics and had BID dressing changes. The patient has become somewhat deconditioned and feels weak since he has not had much physical therapy since his knee arthroplasty. The patient is unable to change the dressings himself given the location, therefore he needs intermediate to assist with dressing changes. The patient also needs to be started with physical therapy for his weakness and deconditioning status post left TKA. The patient offers no specific complaints today. The patient states that he continues to have considerable pain around the operative site. The patient does not have any complaints of the left knee. The patient denies any chest pain or shortness of breath. The patient denies any abdominal pain. No fevers or chills. The patient denies any focal neurological deficits. - Discharge Data Discharge Date: 08/26/17 Discharge Disposition: Home, Self-Care 01 Condition: Good - Discharge Diagnosis/Problem(s) (1) Perirectal abscess SNOMED Code(s): 18455834 ICD Code: K61.1 - RECTAL ABSCESS Status: Acute Priority: Medium Current Visit: Yes Onset Date: ~07/31/17 (2) Soft tissue infection SNOMED Code(s): 28179616 ICD Code: L08.9 - LOCAL INFECTION OF THE SKIN AND SUBCUTANEOUS TISSUE, UNSP Status: Acute Priority: Medium Current Visit: Yes Onset Date: ~07/31/17 (3) Open wound SNOMED Code(s): 343884030 ICD Code: T14.8XXA - OTHER INJURY OF UNSPECIFIED BODY REGION, INITIAL ENCOUNTER Status: Acute Priority: Medium Current Visit: Yes Onset Date: ~08/01/17 (4) Physical deconditioning SNOMED Code(s): 46503201058101 ICD Code: R53.81 - OTHER MALAISE Status: Acute Priority: Medium Current Visit: Yes (5) Weakness SNOMED Code(s): 21756549 ICD Code: R53.1 - WEAKNESS Status: Acute Priority: Medium Current Visit : Yes (6) Diabetes SNOMED Code(s): 36529701 ICD Code: E11.9 - TYPE 2 DIABETES MELLITUS WITHOUT COMPLICATIONS Status: Chronic Current Visit: No Qualifiers: Diabetes mellitus type: type 2 Diabetes mellitus continuous churn buttermaker insulin use: without senior living use Diabetes mellitus complication status: without complication Qualified Code(s): E11.9 - Type 2 diabetes mellitus without complications (7) NSTEMI (non-ST elevated myocardial infarction) SNOMED Code(s): 390599028 ICD Code: I21.4 - NON-ST ELEVATION (NSTEMI) MYOCARDIAL INFARCTION Status: Chronic Current Visit: No (8) Essential hypertension SNOMED Code(s): 33670908 ICD Code: I10 - ESSENTIAL (PRIMARY) HYPERTENSION Status: Chronic Current Visit: No (9) Mixed hyperlipidemia SNOMED Code(s): 984843157 ICD Code: E78.2 - MIXED HYPERLIPIDEMIA Status: Chronic Priority: Medium Current Visit: No (10) Depression SNOMED Code(s): 32129623 ICD Code: F32.9 - MAJOR DEPRESSIVE DISORDER, SINGLE EPISODE, UNSPECIFIED Status: Chronic Current Visit: No Qualifiers: Depression Type: major depressive disorder Major depression recurrence: recurrent Active/Remission status: currently active Major depression episode severity: mild Qualified Code(s): F33.0 - Major depressive disorder, recurrent, mild - Patient Summary/Data Operative Procedure(s) Performed: None Consults: Consultations 08/11/17 13:39 Consult to Case Management [CONS] Routine PT Evaluation and Treatment [CONS] Routine Labs Pending at D/C: None Recommended Follow-up Testing/Procedures: None Planned Operative Procedure(s) after DC: None Hospital Course: Overall, the patient did well during his hospital stay. He was able to go out on leave to his home every day. VSS. Afebrile. He continues to have issues with elevated blood sugars. This is mostly due to non-compliance with his ADA diet. He metformin was increased to 1000 mg BID while on Swing Bed. Dressing changes went well. He was seen by wound clinic on two separate occasions. It is felt the wound is healing nicely. He is now down to daily dressing changes. No issues with BM's or urination. No problems with diet or eating. Pain well controlled. Patient did work with therapy, but did not want to get out of bed and walk on his own very much. Nursing staff had much difficulty trying to get the patient out and bed to go walking. Patient refused most of the time. - Patient Instructions Diet: Diabetic Diet Activity: As Tolerated Driving: Do Not Drive Showering/Bathing: May Shower, No Tub Bathing/Swimming Wound/Incision Care: Keep Operative Site/Wound Site Clean and Dry (Dressing changes twice a day, after each BM, and as needed) Notify Provider of: Fever, Increased Pain, Swelling and Redness, Drainage - Discharge Plan Prescriptions/Med Rec: metFORMIN HCl [Metformin HCl] 1 tab PO BID 30 Days #60 tablet Home Medications: Home Meds Allopurinol [Zyloprim] 300 mg PO DAILY 05/07/13 [History] Gemfibrozil [Lopid] 600 mg PO BIDAC 05/07/13 [History] [place]-3 Fatty Acids/Fish Oil [Fish Oil 1,000 mg Softgel] 1,000 mg PO DAILY 05/07 [History] atorvaSTATin Calcium [Atorvastatin Calcium] 80 mg PO DAILY 05/07/13 [History] Omeprazole [Prilosec] 20 mg PO DAILY 03/05/14 [History] Aspirin/Calcium Carbonate/Mag [Aspirin Buffered] 325 mg PO BID 07/31/17 [History ] FLUoxetine HCl [Prozac] 40 mg PO DAILY 07/31/17 [History] Gabapentin [Neurontin] 600 mg PO DAILY 07/31/17 [History] Insulin Glargine,Hum.Rec.Anlog [[place] U-100] 40 units SQ BEDTIME [History] Insulin Lispro [Humalog Kwikpen U-200] 15 unit SQ TIDAC 07/31/17 [History] LORazepam [Ativan] 1 mg PO BEDTIME 07/31/17 [History] Multivitamin [Men's Multi-Vitamin] 2 tab PO BID 07/31/17 [History] Nortriptyline 50 mg PO DAILY 07/31/17 [History] oxyCODONE 1 - 2 tab PO Q6H PRN 07/31/17 [History] Gabapentin [Neurontin] 300 mg PO BEDTIME 08/11/17 [History] L. Acidophilus/L. Rhamnosus [Probiotic 15 Billion Cell Cap] 2 cap PO BID [History] Metoprolol Tartrate 37.5 mg PO BID 08/11/17 [History] Sulfamethoxazole/Trimethoprim [Bactrim Ds Tablet] 1 tab PO BID 08/11/17 [History ] Nystatin [Nystatin Crm] 0 gm TOP BID tube 08/26/17 [Rx] metFORMIN HCl [Metformin HCl] 1 tab PO BID 30 Days #60 tablet 08/26/17 [Rx] Patient Handouts: How to Change Your Dressing, Total Knee Replacement, Care After, Wound Infection Referrals: Anita Escobar DO [Primary Care Provider] - 09/02/17 10:20 am - Discharge Summary/Plan Comment DC Time >30 min.: Yes Discharge Summary/Plan Comment: Patient will be discharged home today. Script given for Oxycodone. Will increase Metformin to 1000 mg BID. No changes with any other medications at this time. Patient has a follow up appointment with Dr. Escobar next Tuesday at 10 :20am for hospital follow up. Patient will require home care services for twice daily dressing changes to his buttocks wound. He may also benefit from physical therapy. Patient will [place] [facility] [place] [facility] per their discretion. - General Info Date of Service: 08/26/17 Admission Dx/Problem (Free Text: Admission Diagnosis/Problem Admission Diagnosis/Problem Wound, Buttocks/Scrotum Perianal Abscess Soft Tissue Infection Deconditioning Weakness s/p Left TKA Functional Status: Reports: Pain Controlled, Tolerating Diet, Ambulating, Urinating Numeric/FACES Score: 0 - Review of Systems General: Denies: Fever, Weakness, Chills Pulmonary: Denies: Shortness of Breath, Cough Cardiovascular: Denies: Chest Pain, Palpitations Gastrointestinal: Denies: Abdominal Pain, Nausea, Vomiting Skin: Reports: No Symptoms Neurological: Reports: No Symptoms - Patient Data Vitals - Most Recent: Last Vital Signs Temp 36.6 C 08/26/17 06:00 Pulse 81 08/26/17 06:00 Resp 18 08/26/17 06:00 BP 131/69 08/26/17 06:00 Pulse Ox 96 08/26/17 06:00 Weight - Most Recent: 99.45 kg Lab Results - Last 24 hrs: Laboratory Results - last 24 hr 08/25/17 08/25/17 08/25/17 Range/Units 07:46 11:38 19:53 POC Glucose 184 H 227 H 173 H (74-106) mg/dL 08/26/17 Range/Units 06:27 POC Glucose 180 H (74-106) mg/dL Med Orders - Current: Current Medications Acetaminophen (Tylenol) 650 mg PO Q4H PRN PRN Reason: Pain (Mild 1-3)/fever Allopurinol (Zyloprim) 300 mg PO DAILY [facility] Last Admin: 08/25/17 09:18 Dose: 300 mg Aspirin (Ecotrin) 325 mg PO BID [facility] Last Admin: 08/25/17 19:55 Dose: 325 mg Atorvastatin Calcium (Lipitor) 80 mg PO BEDTIME [facility] Last Admin: 08/25/17 19:55 Dose: 80 mg Docusate Sodium (Colace) 100 mg PO BID PRN PRN Reason: Constipation Fish Oil (Fish Oil) 1 gm PO DAILY [facility] Last Admin: 08/25/17 09:17 Dose: 1 gm Fluoxetine HCl (Prozac) 40 mg PO DAILY [facility] Last Admin: 08/25/17 09:15 Dose: 40 mg Gabapentin (Neurontin) 300 mg PO BEDTIME [facility] Last Admin: 08/25/17 19:55 Dose: 300 mg Gabapentin (Neurontin) 600 mg PO DAILY [facility] Last Admin: 08/25/17 09:17 Dose: 600 mg Gemfibrozil (Lopid) 600 mg PO BIDAC [facility] Last Admin: 08/26/17 06:25 Dose: 600 mg Insulin Aspart (Novolog) 15 unit SUBCUT TIDMEALS [facility] Last Admin: 08/25/17 19:59 Dose: Not Given Insulin Detemir (Levemir) 20 unit SUBCUT BID [facility] Last Admin: 08/25/17 19:58 Dose: Not Given Lorazepam (Ativan) 1 mg PO BEDTIME [facility] Last Admin: 08/25/17 19:55 Dose: 1 mg Magnesium Hydroxide (Milk Of Magnesia) 30 ml PO Q12H PRN PRN Reason: Constipation Metformin HCl (Glucophage) 1,000 mg PO BIDMEALS [facility] Last Admin: 08/25/17 19:54 Dose: 1,000 mg Metoprolol Tartrate (Lopressor) 37.5 mg PO BID [facility] Last Admin: 08/25/17 19:56 Dose: 37.5 mg Multivitamins/Minerals (Thera M Plus) 1 tab PO DAILY [facility] Last Admin: 08/25/17 09:19 Dose: 1 tab Nortriptyline HCl (Nortriptyline) 50 mg PO BEDTIME [facility] Last Admin: 08/25/17 19:54 Dose: 50 mg Nystatin (Nystatin Crm) 0 gm TOP BID [facility] Stop: 08/31/17 20:01 Last Admin: 08/25/17 19:53 Dose: 1 applic Omeprazole (Omeprazole) 20 mg PO ACBREAKFAST [facility] Last Admin: 08/26/17 06:25 Dose: 20 mg Oxycodone HCl (Oxycodone) 5 mg PO Q6H PRN PRN Reason: Pain (severe 7-10) Last Admin: 08/23/17 20:31 Dose: 5 mg Polyethylene Glycol (Miralax) 17 gm PO DAILY PRN PRN Reason: Constipation Discontinued Medications Atorvastatin Calcium (Lipitor) 80 mg PO BEDTIME [facility] Last Admin: 08/11/17 22:25 Dose: Not Given Insulin Aspart (Novolog) 15 unit SUBCUT TIDAC [facility] Last Admin: 08/12/17 06:46 Dose: 15 unit Insulin Detemir (Levemir) 20 unit SUBCUT BID [facility] Last Admin: 08/11/17 22:31 Dose: Not Given Metformin HCl (Glucophage) 500 mg PO BIDMEALS [facility] Last Admin: 08/15/17 17:19 Dose: 500 mg Metoprolol Succinate (Toprol Xl) 37.5 mg PO BID [facility] Nystatin (Nystatin Crm) 0 gm TOP BID [facility] Stop: 08/31/17 20:01 Omeprazole (Omeprazole) 20 mg PO ACBRK [facility] Last Admin: 08/12/17 06:48 Dose: 20 mg Trimethoprim/Sulfamethoxazole (Septra Ds) 1 tab PO BID BLAS Stop: 08/18/17 09:00 Last Admin: 08/18/17 07:50 Dose: 1 tab - Exam Quality Assessment: Reports: Skin Breakdown General: Reports: Alert, Oriented, Cooperative, No Acute Distress Lungs: Reports: Clear to Auscultation, Normal Respiratory Effort Cardiovascular: Reports: Regular Rate, Regular Rhythm GI/Abdominal Exam: Normal Bowel Sounds, Soft, Non-Tender Skin: Reports: Warm, Dry Wound/Incisions: Reports: Healing Well, Dressing Dry and Intact, No Drainage Neurological: Reports: No New Focal Deficit *Q Meaningful Use (DIS) - VTE *Q VTE Criteria *Q: No risk for falls at time of discharge
[2017-08-26] MEDS: metFORMIN 500 MG Tab PO SCH (09:36)
[2017-08-26] MEDS: FLUoxetine 20 MG Cap PO SCH (09:36)
[2017-08-26] MEDS: Metoprolol Tartrate 25 MG Tab PO SCH (09:36)
[2017-08-26] MEDS: Fish Oil/Omega-3 Fatty Acids 1 Gm Cap PO SCH (09:36)
[2017-08-26] MEDS: Aspirin 325 MG Tab.EC PO SCH (09:36)
[2017-08-26] MEDS: Multivitamins with Iron/Calcium/Folic Acid/Minerals Tab PO SCH (09:36)
[2017-08-26] MEDS: Gabapentin 300 MG Cap PO SCH (09:37)
[2017-08-26] MEDS: Nystatin Crm 30 GM Tube TOP SCH (09:37)
[2017-08-26] MEDS: Allopurinol 300 MG Tab PO SCH (09:37)
[2017-08-26] MEDS: Insulin Detemir 100 Units/ML 3 ML Pen SUBCUT SCH (09:42)
[2017-08-26] MEDS: Insulin Aspart 100 Units/ML 3 ML Pen SUBCUT SCH (09:43)
== END 2017-08-26 10:00 | disposition home or self-care (01) | DRG 948 ==
LOC: VM.MS 13:12
PROVIDERS: ADMIT Nurse Practitioner Family; ATTEND Nurse Practitioner Family
DX: R53.1 Weakness (principal); K61.1 Rectal abscess; F33.0 Major depressive disorder, recurrent, mild; Z96.652 Presence of left artificial knee joint; G89.18 Other acute postprocedural pain; R53.81 Other malaise; L08.9 Local infection of the skin and subcutaneous tissue, unspecified; E11.9 Type 2 diabetes mellitus without complications; I10 Essential (primary) hypertension; E78.2 Mixed hyperlipidemia; I25.10 Atherosclerotic heart disease of native coronary artery without angina pectoris; J44.9 Chronic obstructive pulmonary disease, unspecified; G47.30 Sleep apnea, unspecified; M10.9 Gout, unspecified; M06.9 Rheumatoid arthritis, unspecified; I25.2 Old myocardial infarction; Z95.1 Presence of aortocoronary bypass graft; Z91.11 Patient's noncompliance with dietary regimen; Z79.899 Other long term (current) drug therapy; Z79.82 Long term (current) use of aspirin; Z79.4 Long term (current) use of insulin; Z79.891 Long term (current) use of opiate analgesic; Z87.891 Personal history of nicotine dependence
CPT/HCPCS: 82962; 97110-GP; 97116-GP; 97161-GP; 97165-GO; 97530-GP; A9270-GY; J1815-GY

== ENCOUNTER 2018-05-13 20:11 | Emergency (ER) | payer OTHER ==
[2018-05-13] MEDS ORDERED: Sodium Chloride 0.9% 10 ML Syringe FLUSH PRN (20:17)
[2018-05-13] MEDS ORDERED: Diltiazem 50 MG/10 ML SDV IVPUSH ONE (20:19)
[2018-05-13] MEDS ORDERED: Diltiazem 100 MG in Sodium Chloride 0.9% 100 ML IV SCH (21:15)
[2018-05-13 21:32] LABS: CHLORIDE,CL 104 mmol/L (98-107); SODIUM,NA 141 mmol/L (136-145)
[2018-05-13 21:34] LABS: ANION GAP 15.9 mmol/L (10-20)
--- NOTE | 2018-05-13 21:40 | EDM.PDOC ---
ED HPI GENERAL MEDICAL PROBLEM - General Chief Complaint: Respiratory Problem Stated Complaint: SOB, intermittent chest pain Time Seen by Provider: 05/13/18 20:15 Source of Information: Reports: Patient History Limitations: Reports: No Limitations - History of Present Illness INITIAL COMMENTS - FREE TEXT/NARRATIVE: Pt. presents to ER with acute onset palpitations. Denies any chest pain. He has a history of COPD and continues to smoke heavily. Pt. states that they "burned part of his heart" (? radiofrequency ablation) due to recurrent atrial fibrillation. He is unable to recall when this was performed, but thinks it was done at [facility]. Pt. states that he has been experiencing increased shortness of breath over the past several months. He has a history of COPD. Denies any cough. No nausea, vomiting, or diarrhea. Pt. has a history of CAD with previous stent, PAD, HTN and hyperlipidemia. states that he has a hypoglycemic episode several days ago and she states that he "hasn't been the same since". Onset: Today Onset Date: 05/13/18 - Related Data Allergies Allergy/AdvReac Type Severity Reaction Status Date / Time No Known Allergies Allergy Verified 05/13/18 20:55 Home Meds: Home Meds Allopurinol [Zyloprim] 300 mg PO DAILY 05/07/13 [History] Gemfibrozil [Lopid] 600 mg PO BIDAC 05/07/13 [History] [place]-3 Fatty Acids/Fish Oil [Fish Oil 1,000 mg Softgel] 1,000 mg PO DAILY 05/07 [History] atorvaSTATin Calcium [Atorvastatin Calcium] 80 mg PO DAILY 05/07/13 [History] Aspirin/Calcium Carbonate/Mag [Aspirin Buffered] 325 mg PO BID 07/31/17 [History ] FLUoxetine HCl [Prozac] 40 mg PO DAILY 07/31/17 [History] Insulin Glargine,Hum.Rec.Anlog [Basaglar Kwikpen U-100] 50 units SQ BEDTIME [History] Insulin Lispro [Humalog Kwikpen U-200] 20 unit SQ TIDAC 07/31/17 [History] LORazepam [Ativan] 1 mg PO BEDTIME 07/31/17 [History] Multivitamin [Men's Multi-Vitamin] 2 tab PO BID 07/31/17 [History] Nortriptyline 50 mg PO BEDTIME 07/31/17 [History] Gabapentin [Neurontin] 300 mg PO TID 08/11/17 [History] metFORMIN HCl [Metformin HCl] 1 tab PO BID 30 Days #60 tablet 08/26/17 [Rx] Lactobacillus Acidophilus [Acidophilus] 1 each PO ASDIRECTED 05/13/18 [History] Metoprolol Succinate [Toprol Xl] 1 tab PO BID 05/13/18 [History] Pantoprazole Sodium [Protonix] 40 mg PO DAILY 05/13/18 [History] Past Medical History Cardiovascular History: Reports: CAD, High Cholesterol, Hypertension, [place], Stents Other Cardiovascular History: A.flutter, angina Respiratory History: Reports: COPD, Sleep Apnea Musculoskeletal History: Reports: Gout, RA Endocrine/Metabolic History: Reports: Diabetes, Type II - Past Surgical History HEENT Surgical History: Reports: Adenoidectomy, Cataract Surgery, Tonsillectomy Cardiovascular Surgical History: Reports: Cardiac Ablation, Coronary Artery Bypass Respiratory Surgical History: Reports: None GI Surgical History: Reports: Other (See Below) Other GI Surgeries/Procedures: umbilical hernia Musculoskeletal Surgical History: Reports: Arthroscopic Knee, Knee Replacement Dermatological Surgical History: Reports: Other (See Below) Social & Family History - Family History Family Medical History: Noncontributory - Tobacco Use Smoking Status *Q: Current Every Day Smoker Years of Tobacco use: 35 Packs/Tins Daily: 1 - Caffeine Use Caffeine Use: Reports: Coffee, Soda ED ROS GENERAL - Review of Systems Review Of Systems: See Below Constitutional: Reports: No Symptoms HEENT: Reports: No Symptoms Respiratory: Reports: Shortness of Breath. Denies: Cough, Sputum Cardiovascular: Reports: Palpitations Endocrine: Reports: No Symptoms GI/Abdominal: Reports: No Symptoms : Reports: No Symptoms Musculoskeletal: Reports: No Symptoms Skin: Reports: No Symptoms Neurological: Reports: No Symptoms Psychiatric: Reports: No Symptoms Hematologic/Lymphatic: Reports: No Symptoms Immunologic: Reports: No Symptoms ED EXAM, GENERAL - Physical Exam Exam: See Below Exam Limited By: No Limitations General Appearance: Alert, WD/WN, No Apparent Distress Eye Exam: Bilateral Eye: Abnormal EOM, Abnormal Pupil, EOMI, PERRL Nose: Normal Inspection, Normal Mucosa, No Blood Throat/Mouth: Normal Inspection, Normal Lips, Normal Oropharynx, Normal Voice, No Airway Compromise Head: Atraumatic, Normocephalic Neck: Normal Inspection, Supple Respiratory/Chest: No Respiratory Distress, No Accessory Muscle Use, Wheezing ( mild wheezing) Cardiovascular: No Murmur, Tachycardia, Irregularly Irregular Peripheral Pulses: 3+: Radial (L), Radial (R) GI/Abdominal: Normal Bowel Sounds, Soft, Non-Tender, No Organomegaly, No Distention, No Abnormal Bruit, No Mass (Male) Exam: Deferred Rectal (Males) Exam: Deferred Back Exam: Normal Inspection, Full Range of Motion, NT Extremities: Normal Inspection, Normal Range of Motion, Non-Tender, Normal Capillary Refill, No Pedal Edema Neurological: Alert, Oriented, CN II-XII Intact, Normal Cognition, Normal Gait, Normal Reflexes, No Motor/Sensory Deficits Psychiatric: Normal Affect, Normal Mood Skin Exam: Warm, Dry, Intact, Normal Color, No Rash Lymphatic: No Adenopathy EKG INTERPRETATION Rhythm: A-Fib [place]: Normal P-Wave: Present QRS: Normal ST-T: Normal QT: Normal EKG Interpretation Comments: a fib with RVR Course - Vital Signs Last Recorded V/S: Last Vital Signs Temp 37.7 C 05/13/18 20:28 Pulse 104 H 05/13/18 22:11 Resp 16 05/13/18 21:45 BP 124/55 L 05/13/18 22:11 Pulse Ox 92 L 05/13/18 21:15 - Orders/Labs/Meds Orders: Active Orders 24 hr Category Date Time Status EKG Documentation Completion [RC] STAT Care 05/13/18 20:17 Active Chest 1V Frontal [CR] Stat Exams 05/13/18 20:17 Taken Diltiazem [Cardizem] 100 mg Med 05/13/18 21:15 Active Sodium Chloride 0.9% [Normal Saline] 100 ml IV TITRATE Sodium Chloride 0.9% [Saline Flush] Med 05/13/18 20:17 Active 10 ml FLUSH ASDIRECTED PRN Peripheral IV Insertion Adult [OM.PC] Routine Oth 05/13/18 20:18 Ordered Medication Orders Diltiazem HCl 100 mg/ Sodium (Chloride) 100 mls @ 5 mls/hr IV TITRATE BLAS; Protocol Last Admin: 05/13/18 21:15 Dose: 10 mg/hr, 10 mls/hr Sodium Chloride (Saline Flush) 10 ml FLUSH ASDIRECTED PRN PRN Reason: Keep Vein Open Labs: Laboratory Tests 05/13/18 05/13/18 05/13/18 Range/Units 20:43 20:43 20:43 WBC 13.5 H (4.0-10.0) x10^3/uL RBC 3.92 L (4.5-6.0) x10^6/uL Hgb 12.5 L D (14.0-18.0) g/dL Hct 38.4 L (40.0-52.0) % MCV 98.0 H D (78.0-93.0) fL MCH 31.9 (26.0-32.0) pg MCHC 32.6 (32.0-36.0) g/dL RDW Coeff of Merry 13.5 (10.0-15.0) % Plt Count 216 (130-400) x10^3/uL Neut % (Auto) 68.8 (50.0-80.0) % Lymph % (Auto) 18.3 L (25.0-50.0) % [place] % (Auto) 10.1 (2.0-11.0) % Eos % (Auto) 2.4 (0.0-4.0) % Baso % (Auto) 0.4 (0.2-1.2) % PT 10.1 (9.6-11.4) SEC INR 1.0 L (2.0-3.5) Sodium 141 (136-145) mmol/L Potassium 3.9 (3.5-5.1) mmol/L Chloride 104 (98-107) mmol/L Carbon Dioxide 25 (21-32) mmol/L Anion Gap 15.9 (10-20) mmol/L BUN 18 (7-18) mg/dL Creatinine 1.1 (0.70-1.30) mg/dL Est Cr Clr Drug Dosing TNP Estimated GFR (MDRD) > 60 Glucose 211 H (74-106) mg/dL Calcium 8.8 (8.5-10.1) mg/dL Corrected Calcium 9.68 (8.5-10.1) mg/dL Phosphorus 3.8 (2.6-4.7) mg/dL Magnesium 1.2 L (1.8-2.4) mg/dL Total Bilirubin 0.4 (0.2-1.0) mg/dL AST 18 (15-37) U/L ALT 25 (16-63) U/L Alkaline Phosphatase 115 (46-116) U/L Troponin I < 0.017 (<=0.056) ng/mL Total Protein 7.1 (6.4-8.2) g/dL Albumin 2.9 L (3.4-5.0) g/dL Globulin 4.2 Albumin/Globulin Ratio 0.69 TSH, Ultra Sensitive 4.173 H (0.358-3.74) uIU/mL Meds: Medications Generic Name Dose Route Start Last Admin Trade Name Freq PRN Reason Stop Dose Admin Diltiazem HCl 100 mg/ Sodium 100 mls @ 5 mls/hr 05/13/18 21:15 05/13/18 22:02 Chloride IV 15 mg/hr TITRATE BLAS 15 mls/hr Titration Protocol 5 MG/HR Sodium Chloride 10 ml 05/13/18 20:17 Saline Flush FLUSH ASDIRECTED PRN Keep Vein Open Discontinued Medications Generic Name Dose Route Start Last Admin Trade Name Freq PRN Reason Stop Dose Admin Diltiazem HCl 25 mg 05/13/18 20:19 05/13/18 20:24 Cardizem IVPUSH 05/13/18 20:20 25 mg ONETIME ONE Administration Metoprolol Tartrate 5 mg 05/13/18 22:05 05/13/18 22:11 Lopressor IVPUSH 05/13/18 22:06 5 mg ONETIME ONE Administration - Radiology Interpretation Free Text/Narrative:: No acute pathology - Re-Assessments/Exams Free Text/Narrative Re-Assessment/Exam: 05/13/18 22:08 Pt. was given cardiazem 25mg IV. He was started on a cardiazem drip at 10mg/hr. His HR continued to be in the high 90s to 120. Cardiazem was titrated to 15mg/ hr. He was given lopressor 5mg IV. He remained stable during his stay in ER. Free Text/Narrative Re-Assessment/Exam: 05/13/18 22:13 Pt. will be transferred to [facility] in [place]. He is a code 1. Will continue with the cardiazem drip lillian. I spoke with Dr. Aldana, hospitalist at [facility] who accepts patient in transfer. Departure - Departure Time of Disposition: 10:14 Disposition: DC/Tfer to Acute Hospital 02 Clinical Impression: Atrial fibrillation - Discharge Information Referrals: Anita Escobar DO [Primary Care Provider] - Forms: ED Department Discharge - My Orders Last 24 Hours: My Active Orders 05/13/18 20:17 EKG Documentation Completion [RC] STAT Chest 1V Frontal [CR] Stat Sodium Chloride 0.9% [Saline Flush] 10 ml FLUSH ASDIRECTED PRN 05/13/18 20:18 Peripheral IV Insertion Adult [OM.PC] Routine 05/13/18 21:15 Diltiazem [Cardizem] 100 mg Sodium Chloride 0.9% [Normal Saline] 100 ml IV TITRATE - Assessment/Plan Last 24 Hours: My Active Orders 05/13/18 20:17 EKG Documentation Completion [RC] STAT Chest 1V Frontal [CR] Stat Sodium Chloride 0.9% [Saline Flush] 10 ml FLUSH ASDIRECTED PRN 05/13/18 20:18 Peripheral IV Insertion Adult [OM.PC] Routine 05/13/18 21:15 Diltiazem [Cardizem] 100 mg Sodium Chloride 0.9% [Normal Saline] 100 ml IV TITRATE
[2018-05-13] MEDS ORDERED: Metoprolol Tartrate 5 MG/5 ML SDV IVPUSH ONE (22:05)
[2018-05-13 22:35] VITALS: BP 119/53
--- NOTE | 2018-05-15 07:52 | CR ---
[id number] RAD/RAD Chest PA or AP 1V EXAM: RAD Chest PA or AP 1V INDICATION: TACHYCARDIA COMPARISON: None. DISCUSSION: Cardiomediastinal silhouette is normal in size and contour. No infiltrate, effusion, pneumothorax, or edema. IMPRESSION: Negative examination of the chest. Nate Garcia MD 05/15/18 0751 Thank you for allowing us to participate in the care of your patient.
== END 2018-05-13 22:52 | disposition short-term general hospital (02) ==
LOC: VM.ED 20:11
DX: I48.91 Unspecified atrial fibrillation (principal); I10 Essential (primary) hypertension; I25.2 Old myocardial infarction; E11.9 Type 2 diabetes mellitus without complications; F17.210 Nicotine dependence, cigarettes, uncomplicated; Z79.899 Other long term (current) drug therapy
CPT/HCPCS: 36415; 71045; 80053; 83735; 84100; 84443; 84484; 85025; 85610; 93005; 96365; 96366; 96375; 99285; J3490; J7050

== ENCOUNTER 2021-10-29 05:01 | Emergency (ER) | payer OTHER ==
[2021-10-29 06:10] LABS: PTT,PARTIAL THROMBOPLSTIN TIME 26.1 SEC (20.5-30.9)
[2021-10-29 06:11] LABS: ANION GAP 12.2 mmol/L (5-15)
[2021-10-29] MEDS ORDERED: Diltiazem 50 MG/10 ML SDV IVPUSH ONE (06:48)
[2021-10-29] MEDS ORDERED: Sodium Chloride 0.9% 1,000 ML IV ONE (06:57)
[2021-10-29 08:04] VITALS: BP 131/53; PULSE 89
== END 2021-10-29 07:50 | disposition home or self-care (01) ==
LOC: VM.ED 05:01
DX: I48.91 Unspecified atrial fibrillation (principal); I48.92 Unspecified atrial flutter; I25.10 Atherosclerotic heart disease of native coronary artery without angina pectoris; E78.00 Pure hypercholesterolemia, unspecified; I10 Essential (primary) hypertension; I25.2 Old myocardial infarction; J44.9 Chronic obstructive pulmonary disease, unspecified; E11.9 Type 2 diabetes mellitus without complications; Z79.899 Other long term (current) drug therapy; Z79.82 Long term (current) use of aspirin; Z95.1 Presence of aortocoronary bypass graft
CPT/HCPCS: 71045; 80053; 82550; 83615; 84484; 85025; 85610; 85730; 93005; 96361; 96374; 99285; J3490; J7030

== ENCOUNTER 2022-03-09 20:17 | Emergency (ER) | payer OTHER ==
[2022-03-09] MEDS ORDERED: methylPREDNISolone Sodium Succinate 125 MG/2 ML SDV IVPUSH ONE (20:32)
[2022-03-09 21:31] LABS: CHLORIDE,CL 104 mmol/L (98-107); SODIUM,NA 139 mmol/L (136-145)
[2022-03-09 21:33] LABS: ESTIMATED GFR 100 mL/min (>=60)
[2022-03-09] MEDS ORDERED: Furosemide 20 MG/2 ML VIAL IV ONE (21:50)
[2022-03-10 05:28] VITALS: BP 164/91; PULSE 91
== END 2022-03-09 22:17 | disposition home or self-care (01) ==
LOC: VM.ED 20:17
DX: R06.03 Acute respiratory distress (principal); R60.9 Edema, unspecified; I25.10 Atherosclerotic heart disease of native coronary artery without angina pectoris; E78.00 Pure hypercholesterolemia, unspecified; I10 Essential (primary) hypertension; I25.2 Old myocardial infarction; J44.9 Chronic obstructive pulmonary disease, unspecified; M10.9 Gout, unspecified; E11.9 Type 2 diabetes mellitus without complications; Z79.4 Long term (current) use of insulin; Z79.899 Other long term (current) drug therapy; Z79.82 Long term (current) use of aspirin
CPT/HCPCS: 71045; 80053; 83880; 84484; 85025; 93005; 96374; 96375; 99285; J1940; J2930; 36415

== ENCOUNTER 2022-11-08 20:49 | Emergency (ER) | payer OTHER ==
[2022-11-08] MEDS ORDERED: HYDROmorphone 1 MG/ML Syringe IVPUSH ONE (20:58)
[2022-11-08] MEDS ORDERED: Sodium Chloride 0.9% 1,000 ML IV ONE (20:58)
[2022-11-08] MEDS ORDERED: Naloxone 0.4 MG/ML SDV IVPUSH PRN (20:58)
[2022-11-08] MEDS ORDERED: Ondansetron 4 MG/2 ML SDV IVPUSH ONE (21:03)
[2022-11-08 21:10] LABS: HEMOGLOBIN 13.5 g/dL (14.0-18.0); MEAN CORPUSCULAR HEMOGLOBIN 33.5 pg (26.0-32.0); MEAN CORPUSCULAR HGB CONC 33.8 g/dL (32.0-36.0); MEAN CORPUSCULAR VOLUME 99.3 fL (78.0-93.0); PLATELET COUNT,PLT 150 x10^3/uL (130-400); RED BLOOD CELL COUNT 4.03 x10^6/uL (4.5-6.0); WHITE BLOOD CELL COUNT,WBC 19.3 x10^3/uL (4.0-10.0)
[2022-11-08 21:32] LABS: A/G RATIO 0.57; ALANINE AMINOTRANSFERASE,ALT 20 U/L (16-63); ALBUMIN 2.5 g/dL (3.4-5.0); ALKALINE PHOSPHATASE 287 U/L (46-116); ASPARTATE AMNIOTRANSFERASE,AST 27 U/L (15-37); BILIRUBIN TOTAL 0.4 mg/dL (0.2-1.0); BLOOD UREA NITROGEN,BUN 14 mg/dL (7-18); C-REACTIVE PROTEIN 0.21 mg/dL (<=0.30); CALCIUM 9.5 mg/dL (8.5-10.1); CARBON DIOXIDE,CO2 28 mmol/L (21-32); CHLORIDE,CL 103 mmol/L (98-107); CREATININE 0.8 mg/dL (0.70-1.30); GLUCOSE RANDOM 200 mg/dL (70-99); LIPASE 37 U/L (19-71); POTASSIUM,K 3.9 mmol/L (3.5-5.1); PROTEIN TOTAL,TP 6.9 g/dL (6.4-8.2); SODIUM,NA 141 mmol/L (136-145)
[2022-11-08 21:43] LABS: ANION GAP 13.9 mmol/L (5-15); ESTIMATED GFR 103 mL/min (>=60)
[2022-11-08 21:44] LABS: BAND PERCENT MAN 8 % (0-6); LYMPHOCYTES ABSOLUTE MAN 1.5 x10^3/uL (1.0-4.8); LYMPHOCYTES PERCENT MAN 6 % (25-50); MONOCYTES ABSOLUTE MAN 0.4 x10^3/uL (0.0-0.8); MONOCYTES PERCENT MAN 2 % (2-11); NEUTROPHILS ABSOLUTE MAN 17.4 x10^3/uL (1.8-7.7); SEG NEUTROPHILS PERCENT MAN 80 % (50-80); TOXIC GRANULATION 2+ MODERATE
[2022-11-08 21:45] LABS: ANISOCYTOSIS 2+ MODERATE; PLATELET COUNT ESTIMATE ADEQUATE; POLYCHROMASIA RARE; VACUOLATED NEUTROPHILS 2+ MODERATE
[2022-11-08] MEDS ORDERED: Iopamidol 612 MG/ML 100 ML Bottle IVPUSH ONE (22:13)
[2022-11-08 23:32] LABS: APPEARANCE,URINE CLEAR (CLEAR); BILIRUBIN,URINE POC NEGATIVE (NEGATIVE); COLOR,URINE POC AMBER (YELLOW); GLUCOSE,URINE POC >1000 (NEGATIVE); KETONES,URINE POC 15 (NEGATIVE); OCCULT BLOOD,URINE POC SMALL (NEGATIVE); PROTEIN,URINE POC >300 (NEGATIVE); UROBILINOGEN,URINE POC 0.2 (0.2)
[2022-11-08 23:33] LABS: LEUKOCYTE ESTERASE,URINE POC NEGATIVE (NEGATIVE); NITRITE,URINE POC NEGATIVE (NEGATIVE)
[2022-11-08] MEDS ORDERED: Labetalol 20 MG/4 ML Syringe IVPUSH ONE (23:43)
[2022-11-09] MEDS ORDERED: Piperacillin/Tazobactam 3.375 GM in Sodium Chloride 0.9% 100 ML IV ONE (00:09)
[2022-11-09] MEDS ORDERED: HYDROmorphone 1 MG/ML Syringe IVPUSH ONE (00:12)
[2022-11-09 00:22] LABS: BACTERIA,URINE POC NS (NOT SEEN); MUCUS,URINE POC RARE (NOT SEEN); RBC,URINE POC 0-5 /HPF (NOT SEEN); SQUAMOUS EPITHELIAL CELLS,UR P RARE /HPF (NOT SEEN); WBC,URINE POC 0-5 /HPF (NOT SEEN)
[2022-11-09 00:58] VITALS: BP 173/78; PULSE 74
== END 2022-11-09 00:49 | disposition short-term general hospital (02) ==
LOC: VM.ED 20:49
DX: R10.9 Unspecified abdominal pain (principal); I25.10 Atherosclerotic heart disease of native coronary artery without angina pectoris; E78.00 Pure hypercholesterolemia, unspecified; J44.9 Chronic obstructive pulmonary disease, unspecified; I10 Essential (primary) hypertension; I25.2 Old myocardial infarction; E11.9 Type 2 diabetes mellitus without complications; Z88.8 Allergy status to other drugs, medicaments and biological substances; Z79.899 Other long term (current) drug therapy; Z79.4 Long term (current) use of insulin; Z79.82 Long term (current) use of aspirin
CPT/HCPCS: 36415; 74177; 80053; 81000; 83605; 83690; 84145; 85025; 86140; 87040; 93005; 96361; 96365; 96375; 96376; 99284; 99285-25; J1170; J2405; J2543; J3490; J7030; Q9967